=== PATIENT | male | born 1995 | race Caucasian/White ===

== ENCOUNTER 2020-11-25 23:08 | Emergency (ER) | payer SELFPAY ==
[2020-11-25 23:15] VITALS: BP 123/59; PULSE 69; TEMP 97.8; BMI 24.0
[2020-11-26 02:51] LABS: PH,URINE 5.5 (5.0-8.0); URINE APPEARANCE CLEAR; URINE BILIRUBIN NEGATIVE (NEGATIVE); URINE COLOR YELLOW; URINE GLUCOSE (UA) NEGATIVE (NEGATIVE); URINE KETONE TRACE (NEGATIVE); URINE LEUK ESTERASE NEGATIVE (NEGATIVE); URINE NITRITE NEGATIVE (NEGATIVE); URINE PROTEIN NEGATIVE (NEGATIVE); URINE UROBILINOGEN 0.2 mg/dL (0.2-1.0)
== END 2020-11-26 04:03 | disposition home or self-care (01) ==
LOC: JER 23:08
DX: N50.811 Right testicular pain (principal)
CPT/HCPCS: 36415; 76870-TC; 81003; 87491; 87591; 99284-25

== ENCOUNTER 2022-05-28 12:20 | Emergency (ER) | payer OTHER ==
[2022-05-28 12:24] VITALS: BP 127/70; PULSE 81; TEMP 99; BMI 22.3
[2022-05-28] MEDS ORDERED: DIPHTH,PERTUSS(ACELL),TET 0.5 ML DISP.SYRIN IM ONE ×2 (13:56→14:00)
[2022-05-28] MEDS ORDERED: BACITRACIN 15 GM TUBE TOPICAL OINTMENT ONE (14:00)
[2022-05-29] MEDS ORDERED: BACITRACIN 15 GM TUBE TOPICAL OINTMENT TP ONE (13:57)
== END 2022-05-28 14:12 | disposition home or self-care (01) ==
LOC: JERFT 12:20
PROC: 3E0234Z Introduction of Serum, Toxoid and Vaccine into Muscle, Percutaneous Approach (ICD-10-PCS; principal; 2022-05-28)
DX: S61.201A Unspecified open wound of left index finger without damage to nail, initial encounter (principal); W26.8XXA Contact with other sharp object(s), not elsewhere classified, initial encounter
CPT/HCPCS: 90471; 90715; 99284-25

== ENCOUNTER 2023-10-22 19:00 | Emergency (ER) | payer OTHER ==
[2023-10-22 19:05] VITALS: BP 129/75; PULSE 82; RESP 18; TEMP 98.3; BMI 24.0
[2023-10-22] MEDS ORDERED: IBUPROFEN 600 MG TABLET (FP) PO ONE ×2 (20:56→21:01)
[2023-10-22 21:22] LABS: THROAT:GRP A STREP NOT DETECTED (NOTDETECTED)
== END 2023-10-22 21:11 | disposition home or self-care (01) ==
LOC: JERFT 19:00 → JER 19:00 → JERFT 21:11
DX: J02.9 Acute pharyngitis, unspecified (principal); H10.33 Unspecified acute conjunctivitis, bilateral; R50.9 Fever, unspecified; H57.89 Other specified disorders of eye and adnexa; Z20.822 Contact with and (suspected) exposure to COVID-19
CPT/HCPCS: 0241U-QW; 87651; 99283-25